=== PATIENT | female | born 1960 | race Caucasian/White ===

== ENCOUNTER 2018-01-02 12:12 | Inpatient (IN) | payer BC, OTHER ==
[~2018-01-02] VITALS: Ht 162.6 cm; Wt 57.5 kg
[~2018-01-02 12:12] MED LIST: CLON0.5T3 PO; ESTR0.3T PO; VENL150C56 PO
[2018-01-02 14:12] LABS: BASO % 0.3 %; BASO ABS # 0.03 K/uL (0-0.2); EOS % 0.2 %; EOS ABS # 0.02 K/uL (0-0.5); HEMATOCRIT 42.6 % (37-47); IG# 0.03 K/uL (0.00-0.02); LYMPH % 13.9 %; MEAN CELL VOLUME 91.4 fL (80-100); MEAN CORPUSCULAR HEMOGLOBIN 32.2 pg (25-34); MEAN CORPUSCULAR HGB CONC 35.2 g/dl (32-36); MEAN PLATELET VOLUME 10.7 fL (7.4-10.4); MONO % 4.5 %; MONO ABS # 0.52 K/uL (0.11-0.59); NEUT % 80.8 %; NEUT ABS # 9.29 K/uL (1.4-6.5); PLATELET COUNT 189 K/uL (130-400); RED CELL DISTRIBUTION WIDTH SD 46.6 fL (36.4-46.3); WHITE BLOOD COUNT 11.49 K/uL (4.8-10.8)
[2018-01-02 14:38] LABS: ALBUMIN 3.9 gm/dl (3.4-5.0); ALT/SGPT 16 U/L (12-78); AST/SGOT 12 U/L (15-37); BLOOD UREA NITROGEN 10 mg/dl (7-18); CALCIUM 9.2 mg/dl (8.5-10.1); CARBON DIOXIDE 25 mmol/L (21-32); CREATININE 0.94 mg/dl (0.60-1.20); GLUCOSE 116 mg/dl (70-99); POTASSIUM 3.8 mmol/L (3.5-5.1); SODIUM 140 mmol/L (136-145)
[2018-01-02 14:46] LABS: ALKALINE PHOSPHATASE 103 U/L (45-117); TOTAL PROTEIN 7.3 gm/dl (6.4-8.2)
--- NOTE | 2018-01-02 14:49 | EMERGENCY ROOM VISIT NOTE ---
History Report prepared by Emelyn: Rogerio Miranda Under the Supervision of: Dr. Latisha Adhikari D.O. First contact with patient: 12:29 Chief Complaint: MENTAL HEALTH EVALUATION Stated Complaint: SEVERE DEPSRESSION History of Present Illness The patient is a 57 year old female who presents to the Emergency Room with complaints of constant suicidal ideation beginning this week. She notes that she is living alone until the end of next month (due to house sitting for her [id number]), and is afraid of this. The patient states that she is also worried that her might be mad at her when he returns. She has felt suicidal in the past, but has never actually attempted to harm herself. She denies homicidal ideation. The patient talks to a therapist, but states that it only occasionally helps. She is on Effexor and Klonopin. She smokes cigarettes, but denies drug or alcohol use. The patient states that she has not been eating or sleeping much recently. She states that she has lost about 20 pounds over the past two months. The patient denies recent injury or illness. She notes that she has several "bumps" on her buttocks. Source of History: patient Onset: This week Quality: other (suicidal ideation) Timing: constant Review of Systems See HPI for pertinent positives & negatives. A total of 10 systems reviewed and were otherwise negative. Past Medical & Surgical Medical Problems: (1) Rash on buttocks Surgical Problems: (1) Status post partial hysterectomy Family History Diabetes mellitus FH: cancer FH: gallbladder disease FH: heart disease FH: lung disease Hypertension Kidney disease Kidney stones Social History Smoking Status: Current Every Day Smoker Alcohol Use: occasionally Drug Use: none Marital Status: Occupation Status: unemployed Current/Historical Medications Scheduled Clonazepam (Klonopin), 1 MG PO HS Venlafaxine Hcl (Effexor Extended Rel), 150 MG PO QAM Allergies Coded Allergies: Bupropion (Verified Allergy, Unknown, ., 01/02/18) CI Pigment Blue 63 (Verified Allergy, Unknown, ., 01/02/18) Duloxetine (Verified Allergy, Unknown, ., 01/02/18) Penicillins (Verified Allergy, Unknown, 01/02/18) Tetracycline (Verified Allergy, Unknown, 01/02/18) Physical Exam Vital Signs Date Time Temp Pulse Resp B/P (MAP) Pulse Ox O2 Delivery O2 Flow Rate FiO2 01/02/18 16:09 75 16 142/88 98 01/02/18 14:18 85 16 142/88 100 Room Air 01/02/18 12:22 37.1 137 24 152/87 99 Room Air Physical Exam GENERAL: Tearful, anxious, alert, well appearing, well nourished, non-toxic EYE EXAM: normal conjunctiva, PERRL and EOM's grossly intact OROPHARYNX: no exudate, no erythema, lips, buccal mucosa, and tongue normal and mucous membranes are moist NECK: supple, no nuchal rigidity, no adenopathy, non-tender LUNGS: Clear to auscultation. Normal chest wall mechanics HEART: no murmurs, S1 normal and S2 normal ABDOMEN: abdomen soft, non-tender, normo-active bowel sounds, no masses, no rebound or guarding. BACK: Back is symmetrical on inspection and there is no deformity, no midline tenderness, no CVA tenderness. SKIN: no rashes and no bruising UPPER EXTREMITIES: upper extremities are grossly normal. LOWER EXTREMITIES: No pitting edema. NEURO EXAM: Normal sensorium, cranial nerves II-XII grossly intact, normal speech, no gross weakness of arms, no gross weakness of legs. PSYCH: Tearful, anxious. Admits to SI. Denies HI. Medical Decision & Procedures Laboratory Results 01/02/18 13:45 Red Blood Count 4.66, Mean Corpuscular Volume 91.4, Mean Corpuscular Hemoglobin 32.2, Mean Corpuscular Hemoglobin Concent 35.2, Mean Platelet Volume 10.7, Neutrophils (%) (Auto) 80.8, Lymphocytes (%) (Auto) 13.9, Monocytes (%) (Auto) 4.5, Eosinophils (%) (Auto) 0.2, Basophils (%) (Auto) 0.3, Neutrophils # (Auto) 9.29, Lymphocytes # (Auto) 1.60, Monocytes # (Auto) 0.52, Eosinophils # (Auto) 0.02, Basophils # (Auto) 0.03 01/02/18 13:45 Test 01/02/18 00:00 01/02/18 13:45 Urine Color DK YELLOW Urine Appearance CLOUDY (CLEAR) Urine pH 5.0 (4.5-7.5) Urine Specific [place] 1.021 (1.000-1.030) Urine Protein 2+ (NEG) Urine Glucose (UA) NEG (NEG) Urine Ketones TRACE (NEG) Urine Occult Blood TRACE (NEG) Urine Nitrite NEG (NEG) Urine Bilirubin NEG (NEG) Urine Urobilinogen NEG (NEG) Urine Leukocyte Esterase MODERATE (NEG) Urine WBC (Auto) >30 /hpf (0-5) Urine RBC (Auto) 0-4 /hpf (0-4) Urine Hyaline Casts (Auto) >30 /lpf (0-5) Urine Epithelial Cells (Auto) >30 /lpf (0-5) Urine Bacteria (Auto) 1+ (NEG) Urine Pathogenic Casts /lpf (0) Urine Opiates Screen NEG (NEG) Urine Methadone, Qualitative NEG (NEG) Urine Barbiturates NEG (NEG) Urine Phencyclidine (PCP) Level NEG (NEG) Ur Amphetamine/Methamphetamine NEG (NEG) MDMA (Ecstasy) Screen NEG (NEG) Urine Benzodiazepines Screen NEG (NEG) Urine Cocaine Metabolite NEG (NEG) Urine Marijuana (THC) NEG (NEG) White Blood Count 11.49 K/uL (4.8-10.8) Red Blood Count 4.66 M/uL (4.2-5.4) Hemoglobin 15.0 g/dL (12.0-16.0) Hematocrit 42.6 % (37-47) Mean Corpuscular Volume 91.4 fL (80-100) Mean Corpuscular Hemoglobin 32.2 pg (25-34) Mean Corpuscular Hemoglobin Concent 35.2 g/dl (32-36) Platelet Count 189 K/uL (130-400) Mean Platelet Volume 10.7 fL (7.4-10.4) Neutrophils (%) (Auto) 80.8 % Lymphocytes (%) (Auto) 13.9 % Monocytes (%) (Auto) 4.5 % Eosinophils (%) (Auto) 0.2 % Basophils (%) (Auto) 0.3 % Neutrophils # (Auto) 9.29 K/uL (1.4-6.5) Lymphocytes # (Auto) 1.60 K/uL (1.2-3.4) Monocytes # (Auto) 0.52 K/uL (0.11-0.59) Eosinophils # (Auto) 0.02 K/uL (0-0.5) Basophils # (Auto) 0.03 K/uL (0-0.2) RDW Standard Deviation 46.6 fL (36.4-46.3) RDW Coefficient of Variation 14.0 % (11.5-14.5) Immature Granulocyte % (Auto) 0.3 % Immature Granulocyte # (Auto) 0.03 K/uL (0.00-0.02) Anion Gap 6.0 mmol/L (3-11) Est Creatinine Clear Calc Drug Dose 55.7 ml/min Estimated GFR () 77.0 Estimated GFR (Non- 66.4 BUN/Creatinine Ratio 10.9 (10-20) Calcium Level 9.2 mg/dl (8.5-10.1) Total Bilirubin 0.4 mg/dl (0.2-1) Direct Bilirubin < 0.1 mg/dl (0-0.2) Aspartate Amino Transf (AST/SGOT) 12 U/L (15-37) Alanine Aminotransferase (ALT/SGPT) 16 U/L (12-78) Alkaline Phosphatase 103 U/L (45-117) Total Protein 7.3 gm/dl (6.4-8.2) Albumin 3.9 gm/dl (3.4-5.0) Thyroid Stimulating Hormone (TSH) 0.938 uIu/ml (0.300-4.500) Ethyl Alcohol mg/dL < 3.0 mg/dl (0-3) Date/Time Source Procedure Growth Status 01/02/18 00:00 Urine , Clean Catch Urine Culture - Final THREE TYPES OF ORGANSIMS PRESENT, ALL... Complete Laboratory results per my review. ED Course 1236: The patient was evaluated in room A7. A complete history and physical exam was performed. 1526: Pt seen/evaluated by psych case filler. 201 signed. To be admitted to . Awaiting repeat UA given for specimen was suboptimal. Medical Decision Differential diagnosis: Etiologies such as mood disorder, infection, hypoglycemia, electrolyte abnormalities, cardiac sources, intracerebral event, toxicologic, neurologic, as well as others were entertained. Patient admitted to inpatient psychiatry. Patient well-appearing done here, labs reassuring and hemodynamically stable. UA suboptimal and unclear if related to poor specimen versus early infection. Requested patient provide an additional sample for repeat urinalysis. Patient did not provide a sample while in the emergency room. Nurse will relay this information to psychiatric unit nurse and report for possible repeat. Patient denied any urinary symptoms. Medication Reconcilliation Current Medication List: was personally reviewed by me Blood Pressure Screening Patient's blood pressure: Elevated blood pressure Blood pressure disposition: Elevated BP felt to be situational Impression Primary Impression: Depression Additional Impressions: Suicidal ideation Acute anxiety Scribe Attestation The scribe's documentation has been prepared under my direction and personally reviewed by me in its entirety. I confirm that the note above accurately reflects all work, treatment, procedures, and medical decision making performed by me. Departure Information Dispostion [facility] ([address] [place] [id number]) Referrals Julio Heath M.D. (PCP) Patient Instructions My [facility] Problem Qualifiers Primary Impression: Depression Depression Type: major depressive disorder Major depression recurrence: recurrent Active/Remission status: currently active Major depression episode severity: moderate Qualified Codes: F33.1 - Major depressive disorder, recurrent, moderate
[2018-01-02 16:09] VITALS: O2SAT 98
[2018-01-02 16:39] VITALS: BP 138/85; PULSE 87; TEMP 36.7; BMI 21.8
[2018-01-02] MEDS ORDERED: BISMUTH SUBSALICYLATE PER ML OMNICELL CHARGE PO PRN (16:45)
[2018-01-02] MEDS ORDERED: SODIUM CHLORIDE 0.65% NA SOLN 45 ML (OCEAN) PRN (16:45)
[2018-01-02] MEDS ORDERED: ACETAMINOPHEN 325 MG TAB PO PRN (16:45)
[2018-01-02] MEDS ORDERED: MAGNESIUM HYDROXIDE SUSP 30 ML UDC PO PRN (16:45)
[2018-01-02] MEDS ORDERED: ALUMINUM/MAGNESIUM SUSP 30 ML UDC PO PRN (16:45)
[2018-01-02] MEDS ORDERED: NICOTINE POLACRILEX 2 MG GUM MT PRN (16:45)
[2018-01-02] MEDS: NICOTINE 14 MG/24 HR TDSY TD SCH (18:01)
[2018-01-02] MEDS: hydrOXYzine HCL 25 MG TAB PO PRN (21:25)
[2018-01-02] MEDS: CLONAZEPAM 0.5 MG TAB PO SCH (21:25)
[2018-01-03 07:04] VITALS: BP_SYST 103; BP_SYST 96; BP_DIAS 68; PULSE 76; PULSE 85; TEMP 36.6
[2018-01-03] MEDS: NICOTINE 14 MG/24 HR TDSY TD SCH (08:49)
[2018-01-03] MEDS ORDERED: VENLAFAXINE HCL XR 150 MG CAPXR PO SCH (09:00)
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
[2018-01-03] MEDS ORDERED: VENLAFAXINE HCL XR 75 MG CAPXR PO ONE (11:00)
[2018-01-03 14:19] VITALS: Ht 162.6 cm; Wt 57.5 kg
[2018-01-03] MEDS: hydrOXYzine HCL 25 MG TAB PO PRN (21:30)
[2018-01-03] MEDS: CLONAZEPAM 0.5 MG TAB PO SCH (22:00)
[2018-01-04 06:54] VITALS: BP_SYST 94; BP_SYST 99; BP_DIAS 65; PULSE 69; PULSE 73; TEMP 36.9
[2018-01-04] MEDS: VENLAFAXINE HCL XR 75 MG CAPXR PO SCH (08:41)
[2018-01-04] MEDS: NICOTINE 14 MG/24 HR TDSY TD SCH (08:42)
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
[2018-01-04 12:50] LABS: HERPES SIMPLEX AB IGG-1 < 0.90 INDEX (< 0.90); HERPES SIMPLEX AB IGG-2 < 0.90 INDEX (< 0.90)
[2018-01-04] MEDS: CLONAZEPAM 0.5 MG TAB PO SCH (21:38)
[2018-01-04] MEDS: hydrOXYzine HCL 25 MG TAB PO PRN ×2 (21:41→21:43)
[2018-01-05 07:00] VITALS: BP_SYST 96; BP_SYST 99; BP_DIAS 65; BP_DIAS 67; PULSE 71; PULSE 79; TEMP 36.6
[2018-01-05] MEDS: VENLAFAXINE HCL XR 75 MG CAPXR PO SCH (08:51)
[2018-01-05] MEDS: NICOTINE 14 MG/24 HR TDSY TD SCH (08:52)
--- NOTE | 2018-01-05 10:20 | Psych Management Progress Note ---
Psychiatry Miscellaneous Date of Service: Jan 05, 2018. Patient seen, MS assessed. Rates mood as improved following d/c of MNPR ( herpes negative) and future focussed with plan for ultimate relocation to [facility] after [place] condo sells.
--- NOTE | 2018-01-05 13:42 | Psychiatric Progress Notes ---
Progress Note Date of Service Jan 05, 2018. Interval History 57 year old woman with long-standing depression in the setting of a difficult marital relationship, admitted voluntarily with suicidality. Chief Complaint "Well yesterday was a rough day, I had too many thoughts to deal with". Subjective Patient was seen & assessed interval progress reviewed with Treatment Team. Staff reports the patient clarified that she is not interested in a family meeting during her hospitalization. Lab results returned negative for HSV and patient was taken off of a private room. Pt was seen today to assess progress since admission. Pt states she had a rough day yesterday and had a lot of thoughts brought up by topics discussed in groups. She states these thoughts kept her awake last evening and she continues to struggle with them today. Pt is not interested in discussing them at this time, but states she plans to share them with her peers during the next group session. Pt was encouraged in this decision. Pt does reports some dizziness with the increased dose of Effexor, but feels it has decreased since yesterday. She reports mild improvement in appetite. She reports her SI is "not as bad", but states there are still times she dwells on these thoughts. Pt denies other needs or concerns today. Review of Systems Psych: denies symptoms other than stated above Constitutional: reports mild fatigue today Cardiovascular: denied GI: denied Neurologic: reports occasional dizziness Remainder of 10 body systems also reviewed and denied other than noted above. Sleep Information Total Hours of Sleep: 6.75 Meal Information Percent of Breakfast Consumed: 30 Percent of Lunch Consumed: 30 Percent of Dinner Consumed: 75 Mental Status Exam During interview pt is: alert and oriented, cooperative Appearance: appropriately dressed, appropriately groomed Eye contact is: good Motor behavior is: steady gait & station, no abnormal motor movements Speech: normal in rate, rhythm & volume Affect: blunted Mood is: depressed, other Thought process: goal directed Thought content: reality based without delusions Suicidal thought are: present ("not as bad"), Plan: present (To cut her wrists) , Intent: denied Homicidal thoughts are: denied Hallucinations: denies auditory, denies visual Cognition: memory grossly intact, attention grossly intact, language grossly intact Intelligence estimated to be: average Insight: impaired Judgement: impaired Impression Pt reports mild improvement in dizziness since increase to Effexor 225mg. Hopeful that improvement will continue. Reports today and yesterday as "rough" as she is processing recent events. Pt encouraged to discuss with peers or 1-on -1 counselor if needed. Pt also reminded of prn Vistaril for anxiety if overwhelming. Pt reports ongoing SI, which is "not as bad". Due to SI and unclear plan for discharge, requires ongoing inpatient mental health treatment as patient remains at risk of harm to self. Plan (1) Major depressive disorder, recurrent severe without psychotic features 01/03 -Increase Effexor to 225 mg daily -Family meeting with if indicated -Recommend patient return to therapy -Coordinate care with and obtain outpatient records from Dr. Maldonado -Every 15 minute checks for safety -Encourage participation in group and individual counseling -Assist the patient to explore healthy coping strategies 01/04 - Some side effects to new dose of Effexor. Monitor for accomodations. 01/05 - Continue Effexor 225; improvement in side effects, but continue to monitor - Pt encouraged to share anxiety-provoking thoughts with peers or counselor - Reminded of prn Vistaril for anxiety (2) Rash on buttocks 01/03 -Circular healing lesions to both buttocks. Will run HSV Ig G 01/04 - HSV pending. - Per infection control, will have the patient use a separate toilet until results return or single bedroom available 01/05 - Results received, patient is HSV negative. - MNPR discontinued Discharge / Aftercare Planning Primary Care Physician: Name: Dr Davis Psychiatrist: Name: Dr Barcenas, [employer] Date of Appointment: Jan 09, 2018 Time of Appointment: 11:20 a.m. Appointment Notes: [address], [place] [employer] [place] [address] Therapist: Name: [employer] - Ayde Ayala Date of Appointment: Jan 16, 2018 Time of Appointment: 10:00 am Appointment Notes: [address], [place] [address] Inoculator: Name: None Visit Code E&M Code: 98770 Inventory Assets Strengths: Has a place to stay, consistent outpatient providers Needs: To be in therapy and understand her motivations in this relationship Risk Factors Assessment : Yes /single/: No Higher / Fall in social status: No Health problems: Yes Mental Health Diagnoses: Yes Substance use disorders: No Previous attempt: No Previous psychiatric stay: Yes Smoker: Yes Protective Factors Assessment : Yes Responsible for young children: No Employed: No Stable relationships: No Supportive family: No Good rapport with provider: Yes Data Vital Signs Last 24 Hrs: Date Time Temp Pulse Resp B/P (MAP) Pulse Ox O2 Delivery O2 Flow Rate FiO2 01/05/18 07:00 36.6 71 20 96/65 79 99/67 Meds Administered Last 24 Hrs: Meds Administered (Past 24Hrs) Medications (Trade) Dose Ordered Sig/Roxie Route Start Time Stop Time Status Last Admin Dose Admin Venlafaxine HCl (effeXOR EXTENDED REL CAP) 225 mg QAM PO 01/04/18 09:00 02/03/18 08:59 01/05/18 08:51 225 MG
[2018-01-05] MEDS ORDERED: HYDROCORTISONE 1% CR 30 GM TUBE EXT PRN (15:15)
[2018-01-05] MEDS: CLONAZEPAM 0.5 MG TAB PO SCH (21:44)
[2018-01-05] MEDS: hydrOXYzine HCL 25 MG TAB PO PRN (21:48)
[2018-01-06 06:59] VITALS: BP_SYST 109; BP_SYST 90; BP_DIAS 62; BP_DIAS 74; PULSE 69; TEMP 36.6
[2018-01-06] MEDS: VENLAFAXINE HCL XR 75 MG CAPXR PO SCH (09:03)
[2018-01-06] MEDS: NICOTINE 14 MG/24 HR TDSY TD SCH (09:04)
--- NOTE | 2018-01-06 10:55 | Psychiatric Progress Notes ---
Progress Note Date of Service Jan 06, 2018. Interval History 57 year old woman with long-standing depression in the setting of a difficult marital relationship, admitted voluntarily with suicidality. Chief Complaint "I don't know, hard to explain". Subjective Patient was seen & assessed interval progress reviewed with Nursing. Staff report she is going to groups, engaging with peers, and continues to report depression and anxiety. She feels she will need a long hospitalization and did not agree with treatment plan as thought her length of stay should be longer than 3-4 days. Today she states she is struggling with anxiety and racing thoughts about her life and situation with her , saying she "just wants it all to work out for me," but admits she doesn't have control over what ultimately happens with her and that the situation will take time to resolve. She is not sure how she can cope, and says she wants to "just not worry so much, let it go." In exploring this, she thinks it would help to have someone to talk to, and is willing for a therapist. She continues to report poor sleep, although nursing observed 6-7+ hours a night. She doesn't think hydroxyzine has been helpful for sleep, but has only taken the 50mg dose 2 nights, getting 25mg the other 2 nights. She has had dizziness and sense of fuzzy headedness are improving. SI is "sort of going away," feels safe here. Her goals of treatment are to improve her eating, "stay healthy, just feel better." She appears confused when asked about more specific goals for while she is here, and admits she feels confused. She states she doesn't remember going over her treatment plan, and agrees to carry her notebook and takes notes in order to keep track of her goals and progress. She agreed to increase hydroxyzine for sleep. Sleep Information Total Hours of Sleep: 6.00 Meal Information Percent of Breakfast Consumed: 100 Percent of Lunch Consumed: 30 Percent of Dinner Consumed: 75 Mental Status Exam During interview pt is: alert and oriented, cooperative Appearance: appropriately dressed, appropriately groomed Eye contact is: good Motor behavior is: steady gait & station, no abnormal motor movements Speech: normal in rate, rhythm & volume Affect: blunted, anxious Mood is: depressed, other ("Confused") Thought process: goal directed (Vague answers) Thought content: reality based without delusions Suicidal thought are: present (But decreasing), Intent: denied Homicidal thoughts are: denied Hallucinations: denies auditory, denies visual Cognition: memory grossly intact, attention grossly intact, language grossly intact Intelligence estimated to be: average Insight: impaired Judgement: impaired Impression Side effects to increased venlafaxine are diminishing, but still feels dizzy and fuzzy headed. Anxiety and poor sleep continue. Suicidal thoughts improving , but still feels unsafe to leave the hospital, and poorly able to delineate a plan for coping with her stressors. Encouraged her to carry her workbook and take notes on her treatment goals and progress she is making, as she has difficulty recalling discussions she has had with staff and is very vague about her treatment goals. Will increase hydroxyzine to target sleep, and encourage use of the as needed dose for anxiety. Due to severity of mood and anxiety symptoms, suicidality, and inability to contract for safety outside of the hospital, the patient requires inpatient mental treatment due to the risk of harm to self. Plan (1) Major depressive disorder, recurrent severe without psychotic features 01/03 -Increase Effexor to 225 mg daily -Family meeting with if indicated -Recommend patient return to therapy -Coordinate care with and obtain outpatient records from Dr. Maldonado -Every 15 minute checks for safety -Encourage participation in group and individual counseling -Assist the patient to explore healthy coping strategies 01/04 - Some side effects to new dose of Effexor. Monitor for accomodations. 01/05 - Continue Effexor 225; improvement in side effects, but continue to monitor - Pt encouraged to share anxiety-provoking thoughts with peers or counselor - Reminded of prn Vistaril for anxiety 01/06 -Continue venlafaxine XR, and increase hydroxyzine to 100 mg nightly. -Encourage the patient to utilize her patient workbook to take notes on her treatment goals and progress. -Continue to process her stressors and healthy ways to cope with these after discharge. She is willing for therapy, and is scheduled with Ayde Ayala on 07/2018. (2) Rash on buttocks 01/03 -Circular healing lesions to both buttocks. Will run HSV Ig G 01/04 - HSV pending. - Per infection control, will have the patient use a separate toilet until results return or single bedroom available 3/30 - Results received, patient is HSV negative. - MNPR discontinued 01/06 -Continue hydrocortisone cream as needed. (3) Nicotine addiction Continue patch and gum as needed for cravings. Discharge / Aftercare Planning Primary Care Physician: Name: Dr Davis Psychiatrist: Name: Dr Barcenas, [employer] Date of Appointment: Jan 09, 2018 Time of Appointment: 11:20 a.m. Appointment Notes: [address], [place] [address] Therapist: Name: [employer] Teja Ayala Date of Appointment: Jan 16, 2018 Time of Appointment: 10:00 am Appointment Notes: [address], [place] [address] Grinder Machine Knife Setter: Name: None Visit Code E&M Code: 42361 Inventory Assets Strengths: Has a place to stay, consistent outpatient providers Needs: To be in therapy and understand her motivations in this relationship Risk Factors Assessment : Yes /single/: No Higher / Fall in social status: No Health problems: Yes Mental Health Diagnoses: Yes Substance use disorders: No Previous attempt: No Previous psychiatric stay: Yes Smoker: Yes Protective Factors Assessment : Yes Responsible for young children: No Employed: No Stable relationships: No Supportive family: No Good rapport with provider: Yes Data Vital Signs Last 24 Hrs: Date Time Temp Pulse Resp B/P (MAP) Pulse Ox O2 Delivery O2 Flow Rate FiO2 01/06/18 06:59 36.6 69 16 90/62 69 109/74
[2018-01-06] MEDS: CLONAZEPAM 0.5 MG TAB PO SCH (21:40)
[2018-01-06] MEDS: hydrOXYzine HCL 25 MG TAB PO PRN (21:50)
[2018-01-07 07:00] VITALS: BP_SYST 102; BP_SYST 119; BP_DIAS 68; BP_DIAS 81; PULSE 69; PULSE 70; TEMP 36.5
--- NOTE | 2018-01-07 08:14 | Psychiatric Progress Notes ---
Progress Note Date of Service Jan 07, 2018. Interval History 57 year old woman with long-standing depression in the setting of a difficult marital relationship, admitted voluntarily with suicidality. Chief Complaint "A little of both, negative and positive ". Subjective Patient was seen & assessed interval progress reviewed with Nursing. Staff report she attended and participated in groups appropriately, talked about her struggles trying to live alone apart from her , and had difficulty identifying hobbies or things that she likes to do. She endorsed feeling confused with negative thoughts. Requested hydroxyzine last night, but only wanted to take 50 mg, despite her primary concern yesterday having been poor sleep and wanting a medication change to address that, for which the hydroxyzine was increased to 100 mg. Today, the patient was seen in her room, where she is still in bed. She states that she slept alright last night, fell asleep easily and woke up once or twice overnight. She continues to endorse depression and significant anxiety about leaving the hospital, stating that she does not want to return to her vjuemv-lc-yhe's house where she will be living alone until the end of the month when her rtuuqr-pi-ver returns. She is thinking about asking a male friend of hers if she could stay with him, but has not yet spoken to him about this. She continues to struggle with following through on goals for her hospitalization, and states that she has not thought at all about the goals were identified yesterday, including ways to cope with her anxiety outside the hospital ways to add structure and support to her daily schedule. She denies suicidal thoughts. She is worried that if she goes home to her hwejqk-pk-sgn's house, she "will not want to eat," because she will be thinking about her and worried about their situation. She cannot think of any ideas of ways to mitigate some of these stressors, and when suggestions are made, such as calling her male friend to see if they can get together for meals, she is unable to commit to making those phone calls today, saying only "maybe." Sleep Information Total Hours of Sleep: 7.25 Meal Information Percent of Breakfast Consumed: 100 Percent of Lunch Consumed: 100 Percent of Dinner Consumed: 40 Mental Status Exam During interview pt is: alert and oriented, cooperative Appearance: appropriately dressed, appropriately groomed Eye contact is: good Motor behavior is: steady gait & station, no abnormal motor movements Speech: normal in rate, rhythm & volume Affect: blunted, anxious Mood is: depressed, other ("Confused") Thought process: goal directed (Vague answers) Thought content: reality based without delusions Suicidal thought are: present (But decreasing), Intent: denied Homicidal thoughts are: denied Hallucinations: denies auditory, denies visual Cognition: memory grossly intact, attention grossly intact, language grossly intact Intelligence estimated to be: average Insight: impaired Judgement: impaired Impression Side effects to increased venlafaxine are diminishing, but still feels dizzy and fuzzy headed. Anxiety and poor sleep continue. Suicidal thoughts improving , but still feels unsafe to leave the hospital, and poorly able to delineate a plan for coping with her stressors. Encouraged her to carry her workbook and take notes on her treatment goals and progress she is making, as she has difficulty recalling discussions she has had with staff and is very vague about her treatment goals. Will increase hydroxyzine to target sleep, and encourage use of the as needed dose for anxiety. Due to severity of mood and anxiety symptoms, suicidality, and inability to contract for safety outside of the hospital, the patient requires inpatient mental treatment due to the risk of harm to self. Plan (1) Major depressive disorder, recurrent severe without psychotic features 01/03 -Increase Effexor to 225 mg daily -Family meeting with if indicated -Recommend patient return to therapy -Coordinate care with and obtain outpatient records from Dr. Maldonado -Every 15 minute checks for safety -Encourage participation in group and individual counseling -Assist the patient to explore healthy coping strategies 01/04 - Some side effects to new dose of Effexor. Monitor for accomodations. 01/05 - Continue Effexor 225; improvement in side effects, but continue to monitor - Pt encouraged to share anxiety-provoking thoughts with peers or counselor - Reminded of prn Vistaril for anxiety 01/06 -Continue venlafaxine XR, and increase hydroxyzine to 100 mg nightly. -Encourage the patient to utilize her patient workbook to take notes on her treatment goals and progress. -Continue to process her stressors and healthy ways to cope with these after discharge. She is willing for therapy, and is scheduled with Ayde Ayala on 07/2018. 01/07 -Continue current medications, and decrease hydroxyzine back to 50 mg nightly at patient's request. -She will require ongoing encouragement and assistance from staff in developing her discharge plan, including calling her friend, making plans to ensure good nutrition and that she is not isolating at home. (2) Rash on buttocks 01/03 -Circular healing lesions to both buttocks. Will run HSV Ig G 01/04 - HSV pending. - Per infection control, will have the patient use a separate toilet until results return or single bedroom available 01/05 - Results received, patient is HSV negative. - MNPR discontinued 01/06 -Continue hydrocortisone cream as needed. (3) Nicotine addiction Continue patch and gum as needed for cravings. (4) Cognitive disorder Per outpatient psychiatrist records, his history of cognitive disorder NOS, and follows up with Dr. Morris of neurology. She had an MRI for 11/2012, that showed multifocal T2 hyperintensities, but was otherwise normal. Her cognitive state has been fairly stable, but she has short-term memory deficits and slow processing that are exacerbated during periods of depression. Discharge / Aftercare Planning Primary Care Physician: Name: Dr Davis Psychiatrist: Name: Dr Barcenas, [facility] Date of Appointment: Jan 09, 2018 Time of Appointment: 11:20 a.m. Appointment Notes: [address], [place] [address] Therapist: Name: [facility] Teja Ayala Date of Appointment: Jan 16, 2018 Time of Appointment: 10:00 am Appointment Notes: [address], [place] [address] [employer] Consultant: Name: None Visit Code E&M Code: 57506 Inventory Assets Strengths: Has a place to stay, consistent outpatient providers Needs: To be in therapy and understand her motivations in this relationship Risk Factors Assessment : Yes /single/: No Higher / Fall in social status: No Health problems: Yes Mental Health Diagnoses: Yes Substance use disorders: No Previous attempt: No Previous psychiatric stay: Yes Smoker: Yes Protective Factors Assessment : Yes Responsible for young children: No Employed: No Stable relationships: No Supportive family: No Good rapport with provider: Yes Data Vital Signs Last 24 Hrs: Date Time Temp Pulse Resp B/P (MAP) Pulse Ox O2 Delivery O2 Flow Rate FiO2 01/07/18 07:00 36.5 69 16 102/68 70 119/81 Meds Administered Last 24 Hrs: Meds Administered (Past 24Hrs) Medications (Trade) Dose Ordered Sig/Roxie Route Start Time Stop Time Status Last Admin Dose Admin Hydroxyzine HCl (Vistaril Tab) 100 mg HSZ PRN PO 01/06/18 11:00 02/01/18 16:44 01/06/18 21:50 50 MG
[2018-01-07] MEDS: NICOTINE 14 MG/24 HR TDSY TD SCH (09:10)
[2018-01-07] MEDS: VENLAFAXINE HCL XR 75 MG CAPXR PO SCH (09:12)
[2018-01-07] MEDS: hydrOXYzine HCL 25 MG TAB PO PRN (21:48)
[2018-01-07] MEDS: CLONAZEPAM 0.5 MG TAB PO SCH (21:48)
[2018-01-08 06:52] VITALS: BP_SYST 104; BP_SYST 99; BP_DIAS 66; BP_DIAS 71; PULSE 71; PULSE 74; TEMP 36.5
[2018-01-08] MEDS: VENLAFAXINE HCL XR 75 MG CAPXR PO SCH (08:44)
[2018-01-08] MEDS: NICOTINE 14 MG/24 HR TDSY TD SCH (08:47)
--- NOTE | 2018-01-08 09:59 | Psychiatric Progress Notes ---
Progress Note Date of Service Jan 08, 2018. Interval History 57 year old woman with long-standing depression in the setting of a difficult marital relationship, admitted voluntarily with suicidality. Chief Complaint "Well Monday was pretty good, but Monday I had a lot of thoughts I was dealing with. It was more difficult". Subjective Patient was seen & assessed interval progress reviewed with Treatment Team. Staff reports the patient has been setting a goal to call a friend who was willing to have her stay with him and his . Pt has put this off for several days. Pt was seen today to assess progress since admission. Pt states she had made attempts all day yesterday to call her friend and was finally able to speak with him around 6:00pm. She states he and his are not to be back in town until of this week, and the patient reports to both this provider and mental health counselor that she feels that she would be unsafe if she were to return home, alone. Pt was informed of reasons to support discharge tomorrow, including insurance coverage and an outpatient appointment scheduled for tomorrow at 11:20am. She states she had a rough day yesterday after being informed that she would likely be leaving sooner than she had planned. Pt is adamant that her safety would be compromised if she were to return to living alone, even for a short period of time. Pt states her SI is "getting better, slowly", and denies any this morning. She reports improvement of side effects initially noted during her increase of Effexor. She denies any other psychiatric concerns today. This provider was informed by U counselor that the patient was seen tearful after our encounter and overwhelmed by the discussion of discharge. Pt reported to that counselor that she felt she could not contract for safety and would likely "slit my wrists" if she were to be discharged home without supervision from her friend and his . Review of Systems Psych: denies symptoms other than stated above Constitutional: denied Cardiovascular: denied GI: denied Neurologic: denied Remainder of 10 body systems also reviewed and denied other than noted above. Sleep Information Total Hours of Sleep: 5.50 Meal Information Percent of Breakfast Consumed: 100 Percent of Lunch Consumed: 45 Percent of Dinner Consumed: 100 Mental Status Exam During interview pt is: alert and oriented, cooperative Appearance: appropriately dressed, appropriately groomed Eye contact is: good Motor behavior is: steady gait & station, no abnormal motor movements Speech: normal in rate, rhythm & volume Affect: depressed, blunted, anxious Mood is: depressed, other ("worried" "scared") Thought process: goal directed (wanting to feel comfortable with discharge plans), linear, logical Thought content: reality based without delusions Suicidal thought are: present ("getting better, slowly"), Plan: present ( reports to counselor plan to "slit my wrists", unable to contract for safety outside of the hosptial setting), Intent: present (if discharged without adequate supervision/support) Homicidal thoughts are: denied Hallucinations: denies auditory, denies visual Cognition: attention grossly intact, language grossly intact Intelligence estimated to be: average Insight: impaired Judgement: impaired Impression Pt is visibly overwhelmed during encounter and feeling uncomfortable about discharge earlier than she was anticipating. Pt reports feeling anxious and being unable to contract for safety outside of the hospital. U counselor shares with this provider the patient's statement of "slitting my wrists" if she were to be discharged before her friends were back in town to support and supervise her. Pt is highly concerned about returning home without structure or supervision and is poorly able to delineate a plan for coping with her stressors. Pt reports her SI is "getting better, slowly" and denied harmful thoughts prior to our encounter. Pt requires ongoing inpatient mental health treatment as she is now making statements suggesting harm to self with specific plan to "slit my wrists". Due to severity of mood and anxiety symptoms, suicidality, and inability to contract for safety outside of the hospital, the patient remains at high risk of harm to self at this time. Plan (1) Major depressive disorder, recurrent severe without psychotic features 01/03 -Increase Effexor to 225 mg daily -Family meeting with if indicated -Recommend patient return to therapy -Coordinate care with and obtain outpatient records from Dr. Maldonado -Every 15 minute checks for safety -Encourage participation in group and individual counseling -Assist the patient to explore healthy coping strategies 01/04 - Some side effects to new dose of Effexor. Monitor for accomodations. 01/05 - Continue Effexor 225; improvement in side effects, but continue to monitor - Pt encouraged to share anxiety-provoking thoughts with peers or counselor - Reminded of prn Vistaril for anxiety 01/06 -Continue venlafaxine XR, and increase hydroxyzine to 100 mg nightly. -Encourage the patient to utilize her patient workbook to take notes on her treatment goals and progress. -Continue to process her stressors and healthy ways to cope with these after discharge. She is willing for therapy, and is scheduled with Ayde Ayala on 07/2018. 01/07 -Continue current medications, and decrease hydroxyzine back to 50 mg nightly at patient's request. -She will require ongoing encouragement and assistance from staff in developing her discharge plan, including calling her friend, making plans to ensure good nutrition and that she is not isolating at home. 01/08 - Continue Effexor 225mg daily; pt reports resolution of side effects experienced with dose change - Pt unable to contract for safety outside of the hospital, stating she would "slit my wrists" if she were to return to her home alone. (2) Rash on buttocks 01/03 -Circular healing lesions to both buttocks. Will run HSV Ig G 01/04 - HSV pending. - Per infection control, will have the patient use a separate toilet until results return or single bedroom available 01/05 - Results received, patient is HSV negative. - MNPR discontinued 01/06 -Continue hydrocortisone cream as needed. (3) Nicotine addiction Continue patch and gum as needed for cravings. (4) Cognitive disorder Per outpatient psychiatrist records, his history of cognitive disorder NOS, and follows up with Dr. Morris of neurology. She had an MRI for 11/2012, that showed multifocal T2 hyperintensities, but was otherwise normal. Her cognitive state has been fairly stable, but she has short-term memory deficits and slow processing that are exacerbated during periods of depression. Discharge / Aftercare Planning Primary Care Physician: Name: Dr Davis Psychiatrist: Name: Dr Barcenas, [facility] Date of Appointment: Jan 09, 2018 Time of Appointment: 11:20 a.m. Appointment Notes: [address], [place] [address] Therapist: Name: [facility] Ayde Ayala Date of Appointment: Jan 16, 2018 Time of Appointment: 10:00 am Appointment Notes: [address], [place] [address] Testing Manager: Name: None Visit Code E&M Code: 75786 Inventory Assets Strengths: Has a place to stay, consistent outpatient providers Needs: To be in therapy and understand her motivations in this relationship Risk Factors Assessment : Yes /single/: No Higher / Fall in social status: No Health problems: Yes Mental Health Diagnoses: Yes Substance use disorders: No Previous attempt: No Previous psychiatric stay: Yes Smoker: Yes Protective Factors Assessment : Yes Responsible for young children: No Employed: No Stable relationships: No Supportive family: No Good rapport with provider: Yes Data Vital Signs Last 24 Hrs: Date Time Temp Pulse Resp B/P (MAP) Pulse Ox O2 Delivery O2 Flow Rate FiO2 01/08/18 06:52 36.5 71 16 99/66 74 104/71 Meds Administered Last 24 Hrs: Meds Administered (Past 24Hrs) Medications (Trade) Dose Ordered Sig/Roxie Route Start Time Stop Time Status Last Admin Dose Admin Hydroxyzine HCl (Vistaril Tab) 100 mg HSZ PRN PO 01/06/18 11:00 01/08/18 08:46 DC 01/07/18 21:48 50 MG
[2018-01-08] MEDS: CLONAZEPAM 0.5 MG TAB PO SCH (21:25)
[2018-01-08] MEDS: hydrOXYzine HCL 25 MG TAB PO PRN (22:17)
[2018-01-09 06:43] VITALS: BP_SYST 111; BP_SYST 86; BP_DIAS 48; BP_DIAS 78; PULSE 68; TEMP 36.8
[2018-01-09] MEDS: NICOTINE 14 MG/24 HR TDSY TD SCH (09:24)
[2018-01-09] MEDS: VENLAFAXINE HCL XR 75 MG CAPXR PO SCH (09:24)
--- NOTE | 2018-01-09 10:29 | Psychiatric Progress Notes ---
Progress Note Date of Service Jan 09, 2018. Interval History 57 year old woman with long-standing depression in the setting of a difficult marital relationship, admitted voluntarily with suicidality. Chief Complaint "It's been tough". Subjective Patient was seen & assessed interval progress reviewed with Nursing. Staff report she struggled to follow through on her plans to contact her friend, Steve , about staying with him after discharge, and told staff that she lied when she said she did not have his number and that he was out of town until later this week. She eventually talked to him, and was very upset when he told her that he and his had talked about it, and decided that they could not have her stay with them. She talked about being afraid to return to her [id number]-ven's house, but struggled to clarify her fears. She endorsed suicidal thoughts to cut her wrists, feeling very distraught and thinking about having to return to her cetgwo-mj-adw's house. She talked to nursing staff about options to increase her structure and support, such as club house, which she was very interested in, but noted that she does not have a vehicle so transportation is a limiting factor. On my assessment today, she states she is disappointed that her friend did not agree for her to come stay with him. He did tell her he could assist with taking her places if needed. She is also thinking about asking her mother in law 's medical housekeeper if she can live with her for a while, but admits she has never talked to her about this before, and hasn't spoken to her since she's been in the hospital. She says they are "sort of" close. She She describes mood as "down , because of the let down" with her friend, "was hoping so bad that I could fo there and be happy, but I'll have to find another route." She had some suicidal thoughts last night, "I was feeling so down, going back to no one wants me, it was like when I came in." She has been wondering "why am I even here, I have no friends, and it's hard." She feels "all the stuff I learned went down the drain. " She denies that she will try to harm herself in the hospital, but says "I know if I go, I couldn't be safe." She feels she needs to "find a place where I can be safe," saying she doesn't feel safe returning to her MIL's house as she is "alone." She isn't sure if she will contact her cleaning lady or not, "maybe , today or something." Her appetite is decreased today, and sleep was disturbed last night. She is willing to be referred for case management and to consider partial hospitalization if available, but doesn't have a car and uses taxis to go to appointments. Her MIL has a car but it is not insured, and doesn't return from her cruise until the end of January. Sleep Information Total Hours of Sleep: 7.00 Meal Information Percent of Breakfast Consumed: 50 Percent of Lunch Consumed: 50 Percent of Dinner Consumed: 25 Mental Status Exam During interview pt is: alert and oriented, cooperative Appearance: appropriately dressed, appropriately groomed Eye contact is: good Motor behavior is: steady gait & station, no abnormal motor movements Speech: normal in rate, rhythm & volume Affect: mood congruent, depressed, tearful, anxious, constricted Mood is: depressed, other ("terrible") Thought process: goal directed, linear, logical Thought content: reality based without delusions Suicidal thought are: present (Thoughts to cut her wrists in the context of thinking about having to return to her vflyey-wc-zmv's house), Plan: present ( Slit wrist), Intent: present (Unable to contract for safety outside the hospital ) Homicidal thoughts are: denied Hallucinations: denies auditory, denies visual Cognition: attention grossly intact, language grossly intact Intelligence estimated to be: average Insight: impaired Judgement: impaired Impression Patient remains depressed, anxious, and easily overwhelmed when talking about discharge. Suicidal thoughts have returned, and she is unable to contract for safety outside of the hospital. The patient requires ongoing inpatient treatment as she remained severely depressed, highly anxious, with suicidal thoughts, plan, and inability to contract for safety outside of the hospital. She remains at high risk for suicide and self-harm if discharged at this time. Plan (1) Major depressive disorder, recurrent severe without psychotic features 01/03 -Increase Effexor to 225 mg daily -Family meeting with if indicated -Recommend patient return to therapy -Coordinate care with and obtain outpatient records from Dr. Maldonado -Every 15 minute checks for safety -Encourage participation in group and individual counseling -Assist the patient to explore healthy coping strategies 01/04 - Some side effects to new dose of Effexor. Monitor for accomodations. 01/05 - Continue Effexor 225; improvement in side effects, but continue to monitor - Pt encouraged to share anxiety-provoking thoughts with peers or counselor - Reminded of prn Vistaril for anxiety 01/06 -Continue venlafaxine XR, and increase hydroxyzine to 100 mg nightly. -Encourage the patient to utilize her patient workbook to take notes on her treatment goals and progress. -Continue to process her stressors and healthy ways to cope with these after discharge. She is willing for therapy, and is scheduled with Ayde Ayala on 07/2018. 01/07 -Continue current medications, and decrease hydroxyzine back to 50 mg nightly at patient's request. -She will require ongoing encouragement and assistance from staff in developing her discharge plan, including calling her friend, making plans to ensure good nutrition and that she is not isolating at home. 01/08 - Continue Effexor 225mg daily; pt reports resolution of side effects experienced with dose change - Pt unable to contract for safety outside of the hospital, stating she would "slit my wrists" if she were to return to her home alone. 01/09 -Continue to work on ways to increase supports and structure after discharge , explore option of case management referral and clubhouse, versus PHP. All of these options are limited by her lack of transportation and limited social supports. Encouraged her to talk with her friends about how they are able to support her, for example planning to have meals together or planning specific activities with them. -Refer for outpatient case management. -Almita care with Dr. Maldonado, and reschedule today's outpatient psychiatric appointment with him. (2) Rash on buttocks 01/03 -Circular healing lesions to both buttocks. Will run HSV Ig G 01/04 - HSV pending. - Per infection control, will have the patient use a separate toilet until results return or single bedroom available 01/05 - Results received, patient is HSV negative. - MNPR discontinued 01/06 -Continue hydrocortisone cream as needed. (3) Nicotine addiction Continue patch and gum as needed for cravings. (4) Cognitive disorder Per outpatient psychiatrist records, his history of cognitive disorder NOS, and follows up with Dr. Morris of neurology. She had an MRI for 11/2012, that showed multifocal T2 hyperintensities, but was otherwise normal. Her cognitive state has been fairly stable, but she has short-term memory deficits and slow processing that are exacerbated during periods of depression. Discharge / Aftercare Planning Primary Care Physician: Name: Dr Davis Psychiatrist: Name: Dr Barcenas, Yapp Date of Appointment: Jan 09, 2018 Appointment Notes: [address], [place] [address] Therapist: Name: Yapp Teja Ayala Date of Appointment: Jan 16, 2018 Time of Appointment: 10:00 am Appointment Notes: [address], [place] [address] It Support Manager: Name: None Visit Code E&M Code: 54757 Inventory Assets Strengths: Has a place to stay, consistent outpatient providers Needs: To be in therapy and understand her motivations in this relationship Risk Factors Assessment : Yes /single/: No Higher / Fall in social status: No Health problems: Yes Mental Health Diagnoses: Yes Substance use disorders: No Previous attempt: No Previous psychiatric stay: Yes Smoker: Yes Protective Factors Assessment : Yes Responsible for young children: No Employed: No Stable relationships: No Supportive family: No Good rapport with provider: Yes Data Vital Signs Last 24 Hrs: Date Time Temp Pulse Resp B/P (MAP) Pulse Ox O2 Delivery O2 Flow Rate FiO2 01/09/18 06:43 36.8 68 20 86/48 68 111/78 Meds Administered Last 24 Hrs: Meds Administered (Past 24Hrs) Medications (Trade) Dose Ordered Sig/Roxie Route Start Time Stop Time Status Last Admin Dose Admin Hydroxyzine HCl (Vistaril Tab) 50 mg HSZ PRN PO 01/08/18 09:00 02/01/18 16:44 01/08/18 22:17 50 MG
[2018-01-09] MEDS: CLONAZEPAM 0.5 MG TAB PO SCH (21:42)
[2018-01-09] MEDS: hydrOXYzine HCL 25 MG TAB PO PRN (22:21)
[2018-01-10 06:48] VITALS: BP_SYST 92; BP_SYST 97; BP_DIAS 63; BP_DIAS 64; PULSE 61; PULSE 73; TEMP 36.5
[2018-01-10] MEDS: NICOTINE 14 MG/24 HR TDSY TD SCH (08:45)
[2018-01-10] MEDS: VENLAFAXINE HCL XR 75 MG CAPXR PO SCH (09:00)
--- NOTE | 2018-01-10 13:23 | Psychiatric Progress Notes ---
Progress Note Date of Service Jan 10, 2018. Interval History 57 year old woman with long-standing depression in the setting of a difficult marital relationship, admitted voluntarily with suicidality. Chief Complaint "A little sad today. ". Subjective Patient was seen & assessed interval progress reviewed with Treatment Team. The patient says that she feels sad today because she will have to leave the comfort of the unit at discharge. She says that she will miss the peers and the activity and knows that that is what's missing in her life right now. When asked how she can recreate that at home, she has very few ideas. She wants to rely on her friend Steve to let her come to his house and help him work on his yard and outside activities, but beyond that has no idea. When I offer suggestions, she has reasons why she can't do things such as worrying she will get confused if she takes the bus, no money for taxi's, suggesting activities which she says she has done in the past like crocheting. We talked about going to [facility] to be with her since he can't come here yet. She says that he doesn't want her to come until all of the legal issues are resolved, fearing that he would lose her again and that would be too painful. When I tried to clarify why the charges would make a difference if they were both expressing commitment to each other, and she had no answer. She will talk with her esteban, as she does every night, about the idea of returning to [facility]. She says she will also ask him about additional money so that she can use the taxi to get around more frequently. She denies SI today, and rates her mood 6.5/10 Review of Systems Constitutional: No fever, No chills, No sweats, No weight loss, No weakness, No fatigue, No problem reported ENT: No hearing loss, No unusual epistaxis, No nasal symptoms, No sore throat, No tinnitus, No dental problems, No trouble swallowing, No problem reported Respiratory: No cough, No sputum, No wheezing, No shortness of breath, No dyspnea on exertion, No dyspnea at rest, No hemoptysis, No problem reported Cardiovascular: No chest pain, No orthopnea, No PND, No edema, No claudication , No palpitations, No problem reported Abdomen: No pain, No nausea, No vomiting, No diarrhea, No constipation, No GI bleeding, No problem reported Musculoskeletal: No joint pain, No muscle pain, No swelling, No calf pain, No problem reported Neurologic: No memory loss, No paralysis, No weakness, No numbness/tingling, No vertigo, No balance problems, No problem reported Psychiatric: + depression symptoms (sadness about leaving the unit) Integumentary: + problem reported (She reports resolving rash on buttocks) Sleep Information Total Hours of Sleep: 6.75 Meal Information Percent of Breakfast Consumed: 100 Percent of Lunch Consumed: 25 Percent of Dinner Consumed: 75 Mental Status Exam During interview pt is: alert and oriented, cooperative Appearance: appropriately dressed, appropriately groomed Eye contact is: good Motor behavior is: steady gait & station, no abnormal motor movements Speech: normal in rate, rhythm & volume Affect: mood congruent, depressed, anxious, constricted Mood is: depressed Thought process: goal directed, linear, logical Thought content: reality based without delusions Suicidal thought are: denied, Plan: denied, Intent: denied Homicidal thoughts are: denied Hallucinations: denies auditory, denies visual Cognition: attention grossly intact, language grossly intact Intelligence estimated to be: average Insight: impaired Judgement: impaired Impression Admits that she had a bad day yesterday with SI when thinking about discharge. Today is better, no SI and realizes that she will have to go home to continue her recovery. She has a very dependent style and looks for others to do for her , things that she can easily do for herself. We will continue to encourage her to find solutions to her problems and not just more problems. Plan (1) Major depressive disorder, recurrent severe without psychotic features 01/03 -Increase Effexor to 225 mg daily -Family meeting with if indicated -Recommend patient return to therapy -Coordinate care with and obtain outpatient records from Dr. Maldonado -Every 15 minute checks for safety -Encourage participation in group and individual counseling -Assist the patient to explore healthy coping strategies 01/04 - Some side effects to new dose of Effexor. Monitor for accomodations. 01/05 - Continue Effexor 225; improvement in side effects, but continue to monitor - Pt encouraged to share anxiety-provoking thoughts with peers or counselor - Reminded of prn Vistaril for anxiety 01/06 -Continue venlafaxine XR, and increase hydroxyzine to 100 mg nightly. -Encourage the patient to utilize her patient workbook to take notes on her treatment goals and progress. -Continue to process her stressors and healthy ways to cope with these after discharge. She is willing for therapy, and is scheduled with Ayde Ayala on 07/2018. 01/07 -Continue current medications, and decrease hydroxyzine back to 50 mg nightly at patient's request. -She will require ongoing encouragement and assistance from staff in developing her discharge plan, including calling her friend, making plans to ensure good nutrition and that she is not isolating at home. 01/08 - Continue Effexor 225mg daily; pt reports resolution of side effects experienced with dose change - Pt unable to contract for safety outside of the hospital, stating she would "slit my wrists" if she were to return to her home alone. 01/09 -Continue to work on ways to increase supports and structure after discharge , explore option of case management referral and clubhouse, versus PHP. All of these options are limited by her lack of transportation and limited social supports. Encouraged her to talk with her friends about how they are able to support her, for example planning to have meals together or planning specific activities with them. -Refer for outpatient case management. -Almita care with Dr. Maldonado, and reschedule today's outpatient psychiatric appointment with him. 01/10 - Continue current meds - Encourage patient to be active in her own treatment (2) Rash on buttocks 01/03 -Circular healing lesions to both buttocks. Will run HSV Ig G 01/04 - HSV pending. - Per infection control, will have the patient use a separate toilet until results return or single bedroom available 01/05 - Results received, patient is HSV negative. - MNPR discontinued 01/06 -Continue hydrocortisone cream as needed. (3) Nicotine addiction Continue patch and gum as needed for cravings. (4) Cognitive disorder Per outpatient psychiatrist records, his history of cognitive disorder NOS, and follows up with Dr. Morris of neurology. She had an MRI for 11/2012, that showed multifocal T2 hyperintensities, but was otherwise normal. Her cognitive state has been fairly stable, but she has short-term memory deficits and slow processing that are exacerbated during periods of depression. Discharge / Aftercare Planning Primary Care Physician: Name: Dr Davis Psychiatrist: Name: Dr Barcenas, [facility] Date of Appointment: Jan 11, 2018 Time of Appointment: 1:00 pm Appointment Notes: [address], [place] [address] Therapist: Name: 2Peer (Qlipso)[facility] - Ayde Godoyrashid Date of Appointment: Jan 16, 2018 Time of Appointment: 10:00 am Appointment Notes: [address] [facility] [address], [place] [address] Customer Engagement Manager: Name: [facility] - referral sent 01/09/2018 Appointment Notes: [address], [place] [address] Visit Code E&M Code: 85870 Inventory Assets Strengths: Has a place to stay, consistent outpatient providers Needs: To be in therapy and understand her motivations in this relationship Risk Factors Assessment : Yes /single/: No Higher / Fall in social status: No Health problems: Yes Mental Health Diagnoses: Yes Substance use disorders: No Previous attempt: No Previous psychiatric stay: Yes Smoker: Yes Protective Factors Assessment : Yes Responsible for young children: No Employed: No Stable relationships: No Supportive family: No Good rapport with provider: Yes Data Vital Signs Last 24 Hrs: Date Time Temp Pulse Resp B/P (MAP) Pulse Ox O2 Delivery O2 Flow Rate FiO2 01/10/18 06:48 36.5 61 20 92/63 73 97/64 Meds Administered Last 24 Hrs: Current Inpatient Medications Medications (Trade) Dose Ordered Sig/Roxie Route Start Time Stop Time Status Last Admin Dose Admin Acetaminophen (Tylenol Tab) 650 mg Q4H PRN PO 01/02/18 16:45 02/01/18 16:44 01/02/18 18:05 325 MG Bismuth Subsalicylate (Kaopectate Liqd) 15 ml PRN PRN PO 01/02/18 16:45 02/01/18 16:44 Al Hydroxide/Mg Hydroxide (Maalox Susp) 30 ml Q4H PRN PO 01/02/18 16:45 02/01/18 16:44 Magnesium Hydroxide (Milk Of Magnesia Susp) 30 ml DAILY PRN PO 01/02/18 16:45 02/01/18 16:44 Sodium Chloride (Cecil Nasal [place]) PRN PRN NA 01/02/18 16:45 02/01/18 16:44 Hydroxyzine HCl (Vistaril Tab) 25 mg Q4H PRN PO 01/02/18 16:45 02/01/18 16:44 01/04/18 21:43 25 MG Nicotine (Nicoderm Cq 14MG Patch) 1 patch QAM TD 01/02/18 17:00 02/01/18 16:59 01/10/18 08:45 1 PATCH Nicotine Polacrilex (Nicorette 2MG Gum) 1 piece Q2H PRN MT 01/02/18 16:45 02/01/18 16:44 Miscellaneous (Remove Nicoderm Patch) 1 ea HS N/A 01/02/18 21:00 02/01/18 20:59 01/09/18 09:24 1 EA Clonazepam (Klonopin Tab) 1 mg HS PO 01/02/18 21:00 02/01/18 20:59 01/09/18 21:42 1 MG Venlafaxine HCl (effeXOR EXTENDED REL CAP) 225 mg QAM PO 01/04/18 09:00 02/03/18 08:59 01/10/18 09:00 225 MG Hydrocortisone (Hydrocortisone 1% Crm) 1 appln BID PRN EXT 01/05/18 15:15 02/04/18 15:14 Hydroxyzine HCl (Vistaril Tab) 50 mg HSZ PRN PO 01/08/18 09:00 02/01/18 16:44 01/09/18 22:21 50 MG Lab Results Last 24 Hrs: 01/02/18 13:45 Red Blood Count 4.66, Mean Corpuscular Volume 91.4, Mean Corpuscular Hemoglobin 32.2, Mean Corpuscular Hemoglobin Concent 35.2, Mean Platelet Volume 10.7, Neutrophils (%) (Auto) 80.8, Lymphocytes (%) (Auto) 13.9, Monocytes (%) (Auto) 4.5, Eosinophils (%) (Auto) 0.2, Basophils (%) (Auto) 0.3, Neutrophils # (Auto) 9.29, Lymphocytes # (Auto) 1.60, Monocytes # (Auto) 0.52, Eosinophils # (Auto) 0.02, Basophils # (Auto) 0.03 01/02/18 13:45 Test 01/02/18 00:00 01/02/18 13:45 01/03/18 10:46 Urine Color DK YELLOW Urine Appearance CLOUDY (CLEAR) Urine pH 5.0 (4.5-7.5) Urine Specific [place] 1.021 (1.000-1.030) Urine Protein 2+ (NEG) Urine Glucose (UA) NEG (NEG) Urine Ketones TRACE (NEG) Urine Occult Blood TRACE (NEG) Urine Nitrite NEG (NEG) Urine Bilirubin NEG (NEG) Urine Urobilinogen NEG (NEG) Urine Leukocyte Esterase MODERATE (NEG) Urine WBC (Auto) >30 /hpf (0-5) Urine RBC (Auto) 0-4 /hpf (0-4) Urine Hyaline Casts (Auto) >30 /lpf (0-5) Urine Epithelial Cells (Auto) >30 /lpf (0-5) Urine Bacteria (Auto) 1+ (NEG) Urine Pathogenic Casts /lpf (0) Urine Opiates Screen NEG (NEG) Urine Methadone, Qualitative NEG (NEG) Urine Barbiturates NEG (NEG) Urine Phencyclidine (PCP) Level NEG (NEG) Ur Amphetamine/Methamphetamine NEG (NEG) MDMA (Ecstasy) Screen NEG (NEG) Urine Benzodiazepines Screen NEG (NEG) Urine Cocaine Metabolite NEG (NEG) Urine Marijuana (THC) NEG (NEG) White Blood Count 11.49 K/uL (4.8-10.8) Red Blood Count 4.66 M/uL (4.2-5.4) Hemoglobin 15.0 g/dL (12.0-16.0) Hematocrit 42.6 % (37-47) Mean Corpuscular Volume 91.4 fL (80-100) Mean Corpuscular Hemoglobin 32.2 pg (25-34) Mean Corpuscular Hemoglobin Concent 35.2 g/dl (32-36) Platelet Count 189 K/uL (130-400) Mean Platelet Volume 10.7 fL (7.4-10.4) Neutrophils (%) (Auto) 80.8 % Lymphocytes (%) (Auto) 13.9 % Monocytes (%) (Auto) 4.5 % Eosinophils (%) (Auto) 0.2 % Basophils (%) (Auto) 0.3 % Neutrophils # (Auto) 9.29 K/uL (1.4-6.5) Lymphocytes # (Auto) 1.60 K/uL (1.2-3.4) Monocytes # (Auto) 0.52 K/uL (0.11-0.59) Eosinophils # (Auto) 0.02 K/uL (0-0.5) Basophils # (Auto) 0.03 K/uL (0-0.2) RDW Standard Deviation 46.6 fL (36.4-46.3) RDW Coefficient of Variation 14.0 % (11.5-14.5) Immature Granulocyte % (Auto) 0.3 % Immature Granulocyte # (Auto) 0.03 K/uL (0.00-0.02) Anion Gap 6.0 mmol/L (3-11) Est Creatinine Clear Calc Drug Dose 55.7 ml/min Estimated GFR () 77.0 Estimated GFR (Non- 66.4 BUN/Creatinine Ratio 10.9 (10-20) Calcium Level 9.2 mg/dl (8.5-10.1) Total Bilirubin 0.4 mg/dl (0.2-1) Direct Bilirubin < 0.1 mg/dl (0-0.2) Aspartate Amino Transf (AST/SGOT) 12 U/L (15-37) Alanine Aminotransferase (ALT/SGPT) 16 U/L (12-78) Alkaline Phosphatase 103 U/L (45-117) Total Protein 7.3 gm/dl (6.4-8.2) Albumin 3.9 gm/dl (3.4-5.0) Thyroid Stimulating Hormone (TSH) 0.938 uIu/ml (0.300-4.500) Ethyl Alcohol mg/dL < 3.0 mg/dl (0-3) Herpes Simplex Virus I IgG Antibody < 0.90 INDEX (< 0.90) Herpes Simplex Virus II IgG Ab < 0.90 INDEX (< 0.90) Date/Time Source Procedure Growth Status 01/02/18 00:00 Urine , Clean Catch Urine Culture - Final THREE TYPES OF ORGANSIMS PRESENT, ALL... Complete
[2018-01-10] MEDS: CLONAZEPAM 0.5 MG TAB PO SCH (21:50)
[2018-01-10] MEDS: hydrOXYzine HCL 25 MG TAB PO PRN (21:50)
[2018-01-11 06:58] VITALS: BP_SYST 101; BP_SYST 91; BP_DIAS 60; BP_DIAS 66; PULSE 64; PULSE 75; TEMP 36.5
[2018-01-11] MEDS: NICOTINE 14 MG/24 HR TDSY TD SCH (09:00)
[2018-01-11] MEDS: VENLAFAXINE HCL XR 75 MG CAPXR PO SCH (09:08)
[2018-01-11] MEDS ORDERED: EFFSR75 PO (09:47)
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
[2018-01-11] MEDS ORDERED: HYDR-3126 PO (09:48)
== END 2018-01-11 12:10 | disposition home or self-care (01) | DRG 885 ==
LOC: C.EDB 12:13 → C.MHU 16:32
PROVIDERS: ADMIT Psychiatry & Neurology Psychiatry; ATTEND Psychiatry & Neurology Psychiatry
DX: F33.2 Major depressive disorder, recurrent severe without psychotic features (principal); R45.851 Suicidal ideations; R21 Rash and other nonspecific skin eruption; R82.79 Other abnormal findings on microbiological examination of urine; F09 Unspecified mental disorder due to known physiological condition; F41.9 Anxiety disorder, unspecified; F17.210 Nicotine dependence, cigarettes, uncomplicated; Z79.899 Other long term (current) drug therapy; Z88.8 Allergy status to other drugs, medicaments and biological substances; Z91.048 Other nonmedicinal substance allergy status; Z88.0 Allergy status to penicillin; Z88.1 Allergy status to other antibiotic agents; Z83.3 Family history of diabetes mellitus; Z82.49 Family history of ischemic heart disease and other diseases of the circulatory system; Z84.1 Family history of disorders of kidney and ureter; Z81.1 Family history of alcohol abuse and dependence